=== PATIENT | male | born 1940 | race American Indian/Alaskan Native ===

== ENCOUNTER 2017-08-26 10:58 | Day surgery (SDC) | payer MEDICARE ==
--- NOTE | 2017-08-25 17:22 | Short Stay Summary ---
Short Stay Documentation Date of service: 08/25/17 Narrative H&P: Korey Meek 77 yr old male with elevated psa s GEOVANNI KELLY MD / NON SMOKER / ED & BPH / FLOMAX 1QD / ED & LOW T KIT / NO FAMILY HX / VIAGRA 100MG SAMPLES + SCRIPT/ NOCTURIA X 3-4---FLOMAX 2QD--- OBS AT PT REQUEST--OAB KIT--CONSIDER CMG (08-19-16)--PSA 6.1 (10-16-16) PUS 35CC - no cancer - few atyical cells () MRI of prostate - 2 PROSTATE LESIONS on left side needs pus bx - History Past Medical History: diabetes, hypertension Past Surgical History: No surgical history - Allergies and Medications Current Medications: Allergies No Known Allergies Allergy (Verified 08/24/17 10:05) Home Medications Medication Instructions Recorded Confirmed Last Taken Type Aspirin [Lo-Dose Aspirin EC] 81 mg PO DAILY 08/24/17 08/24/17 Unknown History Latanoprost 0.005% [Xalatan 0.005%] 1 drop OP QPM 08/24/17 08/24/17 Unknown History Metoprolol [Lopressor] 25 mg PO QHS 08/24/17 08/24/17 Unknown History Multivit-Min/FA/Lycopen/Lutein 1 each PO DAILY 08/24/17 08/24/17 Unknown History [Centrum Silver Men Tablet] Tamsulosin [Flomax] 0.4 mg PO QDAY 08/24/17 08/24/17 Unknown History amLODIPine [Norvasc] 10 mg PO DAILY 08/24/17 08/24/17 Unknown History Active Medications Cefazolin Sodium (Ancef/Sterile Water 2 Gm/20 Ml) 2 gm IV PREOP NR Stop: 08/26/17 23:00 Gentamicin Sulfate/Sodium Chloride (Garamycin/Ns 80 Mg/100 Ml) 100 mls @ 200 mls/hr IV Q8H KATHERINE - Physical exam General appearance: no acute distress, well-nourished Integumentary: no rash, no growths Lungs: Clear to auscultation, Normal air movement Heart: Regular rate, No murmurs Gastrointestinal: normal Male Genitourinary: normal Rectal Exam: normal exam-external/orifice Extremities: no ischemia - Brief post op/procedure progress note Date of procedure: 08/26/17 Pre-op diagnosis: elevated psa --9, bph Post-op diagnosis: same Procedure: ysto, rpg, pus bx, saturation Anesthesia: GETA Surgeon: CLINT CURIEL Estimated blood loss: minimal Pathology: list (prostate cores) Specimen disposition: to lab Condition: stable - Hospital course Hospital course: que on chart - Disposition Condition at discharge: Stable Disposition: [id number] TO HOME OR SELFCARE
[~2017-08-26 10:58] MED LIST: ANCEF/STERILE WATER 2 GM/20 ML IV NR; GARAMYCIN/NS 80 MG/100 ML 100 ML IV SCH
[2017-08-26] MEDS ORDERED: NACL BACTERIOSTATIC INFILTRATI ONE (12:35)
[2017-08-26] MEDS ORDERED: XYLOCAINE MPF 2% ONE (12:40)
[2017-08-26] MEDS ORDERED: DIPRIVAN 10 MG/ML IV ONE (12:40)
[2017-08-26] MEDS ORDERED: DILAUDID ONE (12:42)
[2017-08-26] MEDS ORDERED: DECADRON ONE (12:42)
[2017-08-26] MEDS ORDERED: ZOFRAN ONE (12:43)
[2017-08-26] MEDS ORDERED: PEPCID IV NR (13:00)
[2017-08-26] MEDS ORDERED: VERSED IV NR (13:00)
[2017-08-26] MEDS ORDERED: NACL 0.9% 1000 ML 1,000 ML IV SCH (13:00)
[2017-08-26] MEDS ORDERED: WATER FOR IRRIG STERILE IR ONE (13:45)
--- NOTE | 2017-08-26 15:21 | Fluoroscopy Report ---
FLUOROSCOPY RETROGRADE UROGRAPHY: HISTORY: Elevated PSA. FINDINGS: Fluoroscopy was provided by radiology during retrograde urography by the urologist. 8 fluoroscopic images were captured. There is adequate filling of the ureters and intrarenal collecting systems with no filling defects or anatomic abnormalities identified. Please correlate with the procedural report if needed. IMPRESSION: Retrograde pyelograms within normal limits.
[2017-08-26 15:37] VITALS: BP 114/70
--- NOTE | 2017-08-26 15:40 | Operative Report ---
PREOPERATIVE DIAGNOSES: Elevated PSA, negative biopsy in the past. POSTOPERATIVE DIAGNOSES: Elevated PSA, negative biopsy in the past, left prostatic lesion. PROCEDURE: Cystoscopy, bilateral retrograde pyelograms, prostate ultrasound biopsy (saturation). SURGEON: Bijan Grey MD ANESTHESIA: General. ESTIMATED BLOOD LOSS: Minimal. FLUIDS: Crystalloid. COMPLICATIONS: No complications. INDICATIONS: This 77-year-old gentleman seen in the office for an elevated PSA of 6. He underwent transrectal ultrasound and biopsy of his prostate in 08/2016 that was negative for malignancy. Repeat PSA was 9. MRI suggested a lesion on the left side. He presents now for saturation biopsy. DESCRIPTION OF PROCEDURE: The patient was taken to the operative suite, placed in a supine position. After adequate general anesthesia, placed in a dorsal lithotomy position, prepped and draped in a sterile fashion. Pancystourethroscopy was performed with 22-[place]ib[place] Storz cystoscope, no urethral abnormalities. His prostate, mild trilobar obstruction. His bladder, no tumors or stones were noted. He has some mild trabeculation. Bilateral retrograde pyelograms were obtained with an 8-[place] catheter and 8 mL of contrast. No filling defects or obstruction. Next, using a transrectal ultrasound and probe, ultrasound of the prostate, some mild calcifications on the left side, otherwise unremarkable, 40 mL gland. Template biopsy was obtained at the base, mid, and apex as well as a lateral core as well. A total of 24 cores were taken. Bladder was drained. Rectal exam was benign. He was extubated and taken to recovery room. [facility] [facility] follow up in the office. JOB# [id number] [facility]
--- NOTE | 2017-08-26 16:12 | Anesthesia Consultation ---
Anesthesia Consult and Med Hx Date of service: 08/26/17 - Airway Anesthetic Teeth Evaluation: Poor ROM Head & Neck: Adequate Mental/Hyoid Distance: Adequate Mallampati Class: Class II Intubation Access Assessment: Probably Good - Pulmonary Exam CTA: Yes - Cardiac Exam Cardiac Exam: RRR - Pre-Operative Health Status ASA Pre-Surgery Classification: ASA3 Proposed Anesthetic Plan: General - Pulmonary Hx Smoking: No Hx Sleep Apnea: (JANETT PRE SCREEN HIGH RISK) - Cardiovascular System Hx Hypertension: (X 10 YRS) - Other Systems Hx Cancer: No
--- NOTE | 2017-08-26 16:12 | Anesthesia Day of Surgery ---
Anesthesia Day of Surgery - Day of Surgery Patient Examined: Yes Patient H&P Reviewed: Yes Patient is NPO: Yes
--- NOTE | 2017-08-26 16:13 | Post Anesthesia Evaluation ---
- Post Anesthesia Evaluation Patient Participated: Yes Airway Patent: Yes Stable Respiratory Function: Yes Nausea/Vomiting: No Temp > 96.8F: Yes Pain Manageable: Yes Adequeate Hydration: Yes Anesthesia Complications: No
--- NOTE | 2017-08-28 11:22 | Ultrasound Report ---
ULTRASOUND GUIDANCE INTRAOPERATIVE: 04/28/17 HISTORY: Elevated PSA FINDINGS: Ultrasound guidance was provided by radiology for urology procedure. Please correlate with the procedural report.
== END 2017-08-26 15:35 | disposition home or self-care (01) ==
LOC: OR 10:58
PROVIDERS: ATTEND Urology
DX: E11.9 Type 2 diabetes mellitus without complications (principal); N32.89 Other specified disorders of bladder; I10 Essential (primary) hypertension; Z79.82 Long term (current) use of aspirin
CPT/HCPCS: 52005; 55700; 74420; 76998; 88305; A4217; C1758; C1885; J0690; J1100; J1170; J1580; J2250; J2405; J2704; J7030; Q9967; 76942

== ENCOUNTER 2017-09-08 08:38 | Outpatient (CLI) | payer MEDICARE ==
--- NOTE | 2017-09-08 11:41 | Cat Scan Report ---
CT ABDOMEN AND PELVIS WITHOUT CONTRAST INDICATION: Malignant neoplasm of prostate. COMPARISON: 09/18/2010 CT. FINDINGS: Abdomen and pelvis CT performed following oral contrast only. LUNG BASES: Normal heart size. Few atherosclerotic calcifications. Nonspecific distal esophageal wall prominence/thickening, not excluded for gastroesophageal reflux and/or hiatal hernia, amongst others. ABDOMEN: Please note that sensitivity to detect small visceral lesions is limited due to the absence of intravenous contrast. Few tiny splenic and hepatic calcified granulomas. A 0.4 cm indeterminate left hepatic hypodensity anteriorly may again be noted on axial image 39, series 2 while the other 0.9 cm right hepatic hypodensity/cyst inferomedially about the level of the kidney may possibly measure 0.4 cm, axial image 56. Small bilateral renal cortical hypodensities/cysts, the largest 2.6 cm at the left upper renal pole, axial image 55, series 2. Slight nonspecific bilateral perinephric stranding. Mild diffuse bilateral adrenal hypodense enlargement again noted, likely hyperplasia. Otherwise grossly unremarkable unenhanced liver, spleen, gallbladder, pancreas, nonaneurysmal abdominal aorta with few atherosclerotic calcifications and IVC. No hydronephrosis. No ascites or size significant adenopathy. Opacified GI tract nonobstructive. Normal appendix. Moderate colonic stool/possible constipation. Fat-containing umbilical hernia again noted with a transverse neck of 1.2 cm. PELVIS: Enlarged prostate creating an impression at the bladder base again noted with small intrinsic calcifications. Nonopacified urinary bladder otherwise suboptimally distended and assessed. Normal rectosigmoid. Few pelvic phleboliths. No free fluid or significant adenopathy. Interval enlargement of bilateral inguinal hernias now approximately 4.5 cm in diameter, containing fat bilaterally as also nonobstructive small bowel loops on the right. Mild levoscoliosis apex about L3-L4. Multilevel spinal degenerative changes as spurring. Mid to lower lumbar facet arthropathy and disc degeneration with narrowing and vacuum phenomenon more pronounced. Approximately 2 mm anterolisthesis of L4 over L5 and 5 mm at L5-S1. Bilateral SI joint degenerative bridging. Mild bilateral hip degenerative changes as well. CONCLUSION: 1. No definite acute CT abnormality on this limited, unenhanced exam with an enlarged prostate again noted, as described. 2. Interval enlargement of inguinal hernias containing fat bilaterally and also now nonobstructive small bowel on the right, as detailed above. 3. Various other findings as distal esophageal thickening/hiatal hernia, bilateral renal cysts, bilateral adrenal enlargement/hyperplasia, fat-containing umbilical hernia and increased mid to lower lumbar spine degenerative changes, amongst others, as detailed above. Please correlate. Thank you for the opportunity to participate in this patient's care.
--- NOTE | 2017-09-08 15:48 | Nuclear Medicine Report ---
BONE SCAN: History: Malignant neoplasm of prostate. Comparison: No previous bone scan at this facility. Correlation is made with the CT abdomen pelvis without contrast performed the same day. After injection of isotope, gamma camera imaging of the bony system was done. There is a normal uptake of isotope throughout the bony structures without areas of significantly increased or decreased uptake. Normal uptake in the urinary system is seen. IMPRESSION: No evidence for metastatic disease to the bones.
== END 2017-09-08 08:39 | disposition home or self-care (01) ==
LOC: NM 08:38
PROVIDERS: ATTEND Urology
DX: C61 Malignant neoplasm of prostate (principal); N28.1 Cyst of kidney, acquired; K40.90 Unilateral inguinal hernia, without obstruction or gangrene, not specified as recurrent; M16.0 Bilateral primary osteoarthritis of hip; K44.9 Diaphragmatic hernia without obstruction or gangrene; K42.9 Umbilical hernia without obstruction or gangrene; I10 Essential (primary) hypertension; G47.30 Sleep apnea, unspecified
CPT/HCPCS: 74176; 78306; A9503